=== PATIENT | male | born 1945 | race Caucasian/White ===

== ENCOUNTER 2016-06-19 14:39 | Inpatient (IN) | payer MEDICARE, OTHER ==
[~2016-06-19] VITALS: Ht 182.9 cm; Wt 107.8 kg
--- NOTE | ~2016-06-19 | FD ---
ADMIT: 06/19/2016 RM/LOC: 423 [facility] MR#: [id number] [address] [address] JACK JOSE Ezio S [facility] [place] [address] Final Diagnosis SEX: M AGE: 71 : 1945 ADMISSION DATE: 06/19/2016 DISCHARGE DATE: 06/21/2016 REASON FOR ADMISSION: Chest pain. PROCEDURES PERFORMED: 1. On 06/19/[address] Jack Fraser, selective coronary angiography with left heart catheterization. 2. On 06/19/[address] Jean Carlos Barnard, percutaneous coronary intervention with drug-eluting stent to circumflex. FINAL DIAGNOSES: 1. Acute inferior ST elevated myocardial infarction status post primary percutaneous coronary intervention to left circumflex. 2. Hypertension. 3. Tobacco use. Ping Louis RN / C. Jack Fraser MD / sam JOB #: [id number] CC: Harjinder Fraser, Attending Physician Harjinder Fraser, Family Physician
--- NOTE | ~2016-06-19 | ECH ---
Transthoracic Echocardiography Report (TTE) Demographics Patient Name JACK JOSE Date of Study 06/19/2016 Patient Number [id number] Visit Number [id number] Date of 1945 Room Number 303 Accession Number [id number] Gender Male Age 71 year(s) Referring Bria Santiago MD Mangle Press Catcher Shelby Sneed [facility] Physician Physician Miles Barnard MD Game Advisor Physician Jean Carlos Supervising Ordering Physician Bria Santiago MD, MD/P Nurse Stress Seismograph Observer Conclusions Contractility Score Summary At rest the following contractility abnormalities were noted: Hypokinesis of the Mid jennifer-lateral, the Apical lateral and the Basal jennifer-lateral segments. Contractility of all other segments appeared normal. Summary Technically fair exam. The estimated left ventricular ejection fraction is 60-65%. The aortic root appears mildly dilated. The maximum diameter measures 3.6 cm. Recommendation The patient will be given the results of this study by the physician who ordered the exam. Procedure Type of Study TTE procedure Procedure Date Date: 06/19/2016 Start: 04:17 PM Technical Quality: Adequate visualization Indications:Acute FL. Appropriate Use Criteria: 9 Height: 71 inches Weight: 244.71 pounds BSA: 2.3 m Rhythm: Within normal limits HR: 57 bpm BP: 174/113 mmHg Allergies - No known allergies. M-Mode/2D Measurements LV Diastolic Dimension: 5.09 cm LV Systolic Dimension: 4.13 cm LV Septum Diastolic: 1.08 cm LV PW Diastolic: 1.09 cm AO Root Dimension: 3.62 cm Cardiac Output: 3.89 l/min LA Dimension: 4.53 cm Cardiac Index: 1.69 l/min*m RV Diastolic Dimension: 3.64 cm LA volume index: 40 ml/m LVOT: 1.94 cm LVOT VTI: 23.07 cm RV Base: 3.9 cm LV Stroke volume: 68.16 ml RV Mid: 2.6 cm LV Stroke volume index: 29.63 ml/m RV Length: 6.2 cm TAPSE: 2.15 cm TDI-S': 14 cm/s Doppler Measurements AV Mean Gradient: 3.84 mmHg MV Peak E-Wave: 0.81 m/s LVOT Peak Velocity: 1 m/s MV Peak A-Wave: 0.65 m/s AV Area (Continuity):2.11 cm MV P1/2t: 35.2 msec TR Velocity:2.29 m/s TR Gradient:20.94 mmHg MV Deceleration Time: 121.4 msec Estimated RAP:5 mmHg MV Area (PHT): 6.25 cm Estimated RVSP: 26 mmHg PV Peak Velocity: 0.96 m/s PV Peak Gradient: 3.66 mmHg Estimated PASP: 25.94 mmHg RA Area: 25 cm Findings Left Ventricle The left ventricle is normal in size . Diastolic assessment reveals normal relaxation. Right Ventricle Normal right ventricle structure and function. Left Atrium The left atrium is mildly dilated by LA volume index measurement. Right Atrium The right atrium is mild to moderately dilated. Mitral Valve Normal mitral valve structure and function. Mild mitral regurgitation by color Doppler. Aortic Valve Normal aortic valve structure and function. Tricuspid Valve Normal tricuspid valve structure and function. Mild tricuspid regurgitation by color Doppler. Pulmonic Valve Normal pulmonic valve structure and function. Pericardial Effusion No evidence of pericardial effusion. Miscellaneous The aortic root appears mildly dilated. The maximum diameter measures 3.6 cm. Pleural Effusion No evidence of pleural effusion. Contractility Score LV regional wall motion:(0-Non visualized 1-Normal 2-Hypokinesis 3-Akinesis 4-Dyskinesis 5-Aneurysm) Signature
--- NOTE | ~2016-06-19 | CATH ---
Cardiac Diagnostic + PCI Report Demographics Patient Name DAMON Sweet Gender Male Date of 1945 Age 71 year(s) Patient Number [id number] Date of Study 06/19/2016 Visit Number [id number] Room Number 423 [employer] ID Ht 180.34 cm Wt 111 kg Accession Number [id number] BSA 2.3 m kg/m Referring Bria Santiago MD Primary Physician Physician Performing Evon LOZA Secondary Physician Physician Jean Carlos Santiago MD Diagnostic Bria Santiago MD Assisting Physician Physician Interventional Evon LOZA Physician Shell Worker Physician Jean Carlos Findings and Conclusions Diagnostic Findings and Conclusion 100% occluded mid-Circ 30% mid RCA lesion Diagnostic Recommendations Proceed with emergent PCI of mCirc. Interventional Findings and Conclusion Successful stenting of 100% occluded mCirc with 4.0x28 Synergy RAND post dilated proximally to 5 mm. Yazidism of KARLY III flow. Interventional Recommendations Dual antiplatelet therapy for at least 1 year. Risk factor modification to include smoking cessation. Follow up with [facility] provider in 7 days post-discharge from the hospital. Procedure Description The patient was Emergently brought to the diagnostic cardiac catheterization laboratory in a non-sedated state. Informed consent was obtained only in the verbal form after the risks and benefits were explained. Due to the emergent nature of the patient, written consent was not obtained. The patient had no further questions and agreed to proceed. The planned puncture-incision site(s) were shaved and prepped with ChloraPrep and draped in the usual sterile manner. Conscious sedation, supplemental oxygen, and pain control medications were delivered by a registered nurse under physician guidance. Surface ECG rhythm, blood pressure measurement, and pulse oximetry were monitored throughout the procedure. Arterial access. The right radial access site was infiltrated with lidocaine. The vessel was entered with the Seldinger technique. A 6 Fr sheath was advanced into the vessel and used for catheter placement. Selective left coronary angiography. A TIG catheter was advanced into the left coronary vessel ostium under Fluoroscopic guidance. Contrast was injected by hand. Images were obtained in multiple projections. Selective right coronary angiography. A TIG catheter was advanced into the right coronary vessel ostium under fluoroscopic guidance. Contrast was injected by hand. Images were obtained in multiple projections. Angioplasty and Stent Placement: A XB 3.5 guiding catheter was used to intubate the vessel. A 0.14 Prowater wire was then used to cross the lesion. A 3.5x12 Emerge balloon catheter was placed across the lesion and inflated. The balloon catheter was then removed. A 4.0 x 28 Synergy Drug Eluting Stent was placed and inflated. The stent catheter was then removed. A 5.0 x 15 NC Trek was then advanced and inflated within the stent. Post placement angiograms were performed. Left heart catheterization. A angled pigtail catheter was advanced across the aortic valve to the left ventricle under fluoroscopic guidance. Resting hemodynamics were obtained. Arterial artery hemostasis was achieved with 12 cc air in a TR Band. The patient was transferred to the ICU via cart accompanied by a nurse. The patient left the laboratory in stable condition. Diagnostic Cath Status: Emergency Interventional Cath Status: Emergency Procedure Procedure Type Diagnostic procedure:Angiography:, Coronary Angios w/LHC, Diagnostic Heart Cath SF PCI procedure:Drug Eluting Coronary Stent:, CFX Indications: Acute NE. The procedure was explained in detail to the patient. Risks, complications and alternative treatments were reviewed. Written consent was obtained. Medications Reviewed with Patient prior to Procedure. Complications: No Complication. Angiographic Findings Dominance: Right Cardiac Arteries and Lesion Findings LMCA: Normal (0% Stenosis). LAD: Normal (0% Stenosis). LCx: Abnormal. Lesion on Mid CX: 100% stenosis 28 mm length reduced to 0%. Pre procedure KARLY 0 flow was noted. Post Procedure KARLY III flow was present. The guidewire cross was successful.A poor run off was present.Culprit lesion. Treatment results:Interventional treatment was successful. Devices used - PROWATER WIRE 0.014" X 300CM. Number of passes: 1. - CATH BAL RX EMERGE 3.5X12. 1 inflation(s) to a max pressure of: 10 paz. - CATH STENT SYNERGY 4.0 X 28. 1 inflation(s) to a max pressure of: 16 paz. - NC TREK BALLOON 5.0X15 (105612). Diameter: 5 mm. Length: 15 mm. 2 inflation(s) to a max pressure of: 16 paz. RCA: Abnormal. Lesion on Mid RCA: 30% stenosis . Coronary Tree Procedure Data Procedure Date Date: 06/19/2016Start: 02:45 PMEnd: 03:43 PM Entry Locations - Percutaneous access was performed through the Right Radial artery. A 6 Fr sheath was inserted. Hemostasis was successfully obtained using a TR band. Procedure Medications Order and Administration + + + + + !Time !Medication !Dosage !Route ! + + + + + !06/19/2016 !SF Radial Cocktail: 200mcg Nitro, ! !I.A. ! !02:48 PM !2.5 mg Verapamil, 5000u Heparin ! ! ! + + + + + 06/19/2016 !Fentanyl !25 mcg !I.V. ! !02:50 PM ! ! ! ! + + + + + 06/19/2016 !Angiomax (Bivalirudin) (ACC_5) !16.5 ml !I.V. bolus! !03:03 PM ! ! ! ! + + + + + !06/19/2016 !Angiomax (Bivalirudin) (ACC_5) !1.75 !I.V. drip ! !03:04 PM ! !mg/kg/hr ! ! + + + + + !06/19/2016 !Brilinta (Ticagrelor) (ACC_20) !180 mg !P.O. ! !03:15 PM ! ! ! ! + + + + + Devices Used - A6F TIG CATHETERwas used for:Left coronary angiography. - AGUIDE CATHETER 6FR XB 3.5 100CMwas used for:Circumflex Intervention. - ACATH 6FR PIG 145 110CM CATHETERwas used for:LV Pressures. Fluoroscopy Time: Diagnostic: 7:06 minutes. Total: 7:06 minutes. Fluoroscopy Dose: Diagnostic: 842 mGy. Total: 842 mGy. Estimated Blood Loss: 8 ml. Medical History Allergies - No known allergies. Risk Factors The patient risk factors include:hypertension and Current/Recent(w/in 1 year) tobacco use. Admission Data Admission Date: 06/19/2016 Admission Time: 03:55 PM Insurance Payors: Medicare. Hemodynamics Condition: Rest O2 Consumption: Estimated: 305.52Heart Rate: 62 bpm Pressures (mmHg) +-----+ + !Site !Pressure ! +-----+ + !AO !71/40 (53) ! +-----+ + !LV !82/7 ,16 ! +-----+ + Shunts Oxygen Values O2 Consumption 305.52 Discharge Data Discharge Date: 06/21/2016 Hospital Status: Inpatient Signatures
[2016-06-22] MEDS ORDERED: FLOMAX DPS0.4 MG PO (16:25)
[2016-06-22] MEDS ORDERED: VASOTEC DPS20 MG PO (16:25)
[2016-06-22] MEDS ORDERED: NORVASC5 MG PO (16:25)
[2016-06-22] MEDS ORDERED: HCTZ12.5 MG PO (16:25)
[2016-06-22] MEDS ORDERED: ASPIRIN81 MG PO (16:26)
[2016-06-22] MEDS ORDERED: CARVEDILOL3.125 MG PO (16:27)
[2016-06-22] MEDS ORDERED: BRILINTA90 MG PO (16:27)
[2016-06-22] MEDS ORDERED: LIPITOR40 MG PO (16:27)
[2016-06-22] MEDS ORDERED: NITROSTAT0.4 MG SL (16:27)
--- NOTE | 2016-07-20 15:03 | HP ---
ADMIT: 06/19/2016 RM/LOC: 303 [facility] MR#: [id number] [address] [address] J[place] / /[place] [address] History and Physical SEX: M AGE: 71 : 1945 DATE OF SERVICE: REASON FOR ADMISSION: Chest pain. HISTORY OF PRESENT ILLNESS: Mr. Jose is a 71-year-old white male who while out today doing some yard work noted sudden onset of chest pain, it was severe pressure, radiating into the arms, caused him some shortness of breath but no diaphoresis. No nausea. Called the rescue squad, they transferred him to the [facility] with that, they were clipped for EKG transmission to [place]. EKG there noted ST depression in V1 through V3 with changes consistent with posterior CA. Wit that, STEMI was activated and he was brought directly to the produce laborer. He has a history of hypertension and tobacco use. MEDICATIONS: Include: 1. Lisinopril, unknown dose. 2. Amlodipine, unknown dose. ALLERGIES: NONE KNOWN. FAMILY HISTORY: No family history of coronary disease. SOCIAL HISTORY: He is retired. He is smoker. REVIEW OF SYSTEMS: A full 10-point review of systems was obtained and deemed to be negative except the pertinent dictated above in HPI. PHYSICAL EXAMINATION: VITAL SIGNS: Blood pressure 109/64 with a heart rate in the 50s. He is afebrile. NECK: Shows brisk carotid upstrokes. No JVD or bruit. CHEST: Clear. HEART: Regular. ABDOMEN: Soft. EXTREMITIES: No cyanosis, clubbing, or edema. MUSCULOSKELETAL: Normal. NEUROLOGIC: Normal. SKIN: Reubens, warm, and dry. ADMIT: 06/19/2016 RM/LOC: 303 [facility] MR#: [id number] [facility] [address] [address] JACK JOSE A / /, [place] [address] History and Physical SEX: M AGE: 71 : 1945 LABORATORY AND ANCILLARY DATA: Pending. He has EKG that is consistent with a posterior STEMI. ASSESSMENT AND PLAN: 1. ST-elevation myocardial infarction, acute involving the posterior region of the myocardium. 2. Tobacco use. 3. Hypertension. Risks, benefits, and alternatives to cardiac catheterization were discussed with the patient, he agrees to proceed. We will draw routine labs. Final recommendations will be pending results of the cardiac catheterization. Kwame Fraser MD/ sam JOB #: [id number] CC: Kwame Fraser MD, Attending Physician Kwame Fraser MD, Family Physician
== END 2016-06-21 12:42 | disposition home or self-care (01) | DRG 247 ==
LOC: SSS 14:39 → 3ICU 15:55 → EDSEX 15:55 → 3ICU 06-20 06:34 → 4PCU 06-20 17:21
PROVIDERS: ADMIT Internal Medicine
DX: I21.29 ST elevation (STEMI) myocardial infarction involving other sites (principal); I10 Essential (primary) hypertension; F17.210 Nicotine dependence, cigarettes, uncomplicated